=== PATIENT | male | born 1945 | race Caucasian/White ===

== ENCOUNTER → 2016-07-14 | Outpatient (CLI) | payer OTHER ==
--- NOTE | 2016-07-14 17:01 | MR ---
MRI of the Brain (Without Contrast) at 1554 hours Clinical Indications: Transient cerebral ischemic attack. G45.9. Technique: T1-weighted images were acquired axially and sagittally from the foramen magnum to the ve rtex. Axial fast inversion-recovery, fast T2-weighted, SWI, and diffusion-weighted axial images were obtained, without contrast. Comparison: None. Findings: Multiple hemosiderin deposits throughout bilateral cerebral hemispheres, but especially in the left temporal and parietal lobe regions, which may represent amyloid angiopathy. Throughout the white matter of bilateral cerebral hemispheres, there are a few scattered subcentimeter nonspecific hyperintense T2/FLAIR signal abnormalities, without hemorrhage or mass effect. The ventricles, ciste rns, and sulci are normal, without atrophy, hydrocephalus, midline shift, herniation, or epidural/sub dural hematomas. No intracranial hemorrhage or masses. Diffusion-weighted sequence demonstrates no acute infarct. Cerebellar tonsils are in normal position. Pituitary gland is normal in size. Bella l signal flow void in the superior sagittal sinus, basilar artery, and bilateral internal carotid art eries indicating patency. Paranasal sinuses and mastoid air cells are clear. Impressions 1. Possible amyloid angiopathy, with multiple hemosiderin deposits, asymmetrically more prominent in the left temporal and parietal lobes. 2. A few nonspecific hyperintense T2/FLAIR signal abnormalities in the white matter of bilateral cer ebral hemispheres. Differential diagnosis includes mild microvascular ischemic gliosis, migraine-rel ated sequela, versus less likely atypical demyelinating disease, or postinfectious/post inflammatory sequela. 3. No acute infarct, acute hemorrhage, hydrocephalus, or mass effect. 4. Consider MRA carotids and brain or CTA carotids for further evaluation. 5. Consider MRI brain, with contrast enhancement.
== END ==
LOC: FIMAGING 15:15
PROVIDERS: ATTEND Internal Medicine
DX: R94.02 Abnormal brain scan (principal)

== ENCOUNTER → 2016-08-02 | Outpatient (CLI) | payer OTHER ==
--- NOTE | 2016-08-02 14:32 | DX ---
Right second toe, 3 views History: Pain, prior trauma in November 2015. M79.674. Findings: Right second toe demonstrates subchondral sclerosis, osteophytes, and joint space narrowing of the second metatarsophalangeal joint, consistent with moderate osteoarthritis. 2-mm bone fragment along the medial base of the second toe proximal phalanx, which may represent an avulsion fracture o f indeterminate age. Mild osteoarthritis also noted in the first metatarsophalangeal joint with small spurs. Moderate oste oarthritis right great toe interphalangeal joint with subchondral sclerosis, joint space narrowing, a nd osteophytes. Impression: 1. 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 2. Tiny bone fragment adjacent to the base of the second proximal phalanx, which may represent prior fracture. 3. Mild osteoarthritis right first metatarsophalangeal joint. 4. Moderate osteoarthritis great toe interphalangeal joint.
--- NOTE | 2016-08-02 16:31 | DX ---
Left hip 2 views History: Chronic left hip pain. Comparison: None. Findings: Left hip demonstrates no evidence of fracture or dislocation. No evidence of significant degenerative changes, joint space narrowing, or osteophytes. No destructive osseous lesions. Moderate degenerative disk disease at L5-S1 with osteophytes. Multip le calcified phleboliths in the pelvis. Impression: 1. No evidence of left hip fracture or dislocation. 2. No significant degenerative changes. 3. Degenerative disk disease at L5-S1. 4. Consider additional MR imaging of the left hip if clinically indicated.
== END ==
LOC: BMCIMAGING 11:00
PROVIDERS: ATTEND Internal Medicine
DX: M25.552 Pain in left hip (principal); M19.071 Primary osteoarthritis, right ankle and foot; M51.37 Other intervertebral disc degeneration, lumbosacral region

== ENCOUNTER → 2018-06-03 | Outpatient (CLI) | payer OTHER | LOC: FIMAGING 09:12 | PROVIDERS: ATTEND Psychiatry & Neurology Neurology | DX: R41.3 Other amnesia (principal); R41.89 Other symptoms and signs involving cognitive functions and awareness; F09 Unspecified mental disorder due to known physiological condition; J32.2 Chronic ethmoidal sinusitis; Z86.69 Personal history of other diseases of the nervous system and sense organs ==

== ENCOUNTER 2018-06-20 07:54 | Observation (INO) | payer OTHER ==
--- NOTE | 2018-06-20 08:10 | EDPHY ---
HPI/HX/ROS/PE/MDM Narrative: CHIEF COMPLAINT: Swollen tongue HPI: The patient is a 73 y/o male with a history of Lisinopril use and a hernia surgery complaining of a swollen tongue onset when he woke up at 5:30, 3 hours ago. This is the fourth episode of tongue swelling in the past 3 months. Initially this morning only one side of his tongue was swelling so he tried treating it with ice and drinking water. However, the swelling progressed to involve his entire tongue. His throat then began to swell and he began to have difficulty swallowing. His noted that there was blood in his saliva, which concerned her. Since arriving in the emergency department, the swelling has mildly decreased. The patient states he has been on Lisinopril for many years and started Simvastatin 2 years ago. No rash, fever, headache, chest pain, shortness of breath, abdominal pain, urinary or bowel complaints, numbness, paresthesias. Starting in March, 3 months ago, he has had three additional episodes of tongue and throat swelling. Usually the swelling would occur on the sides of his mouth and occasionally involved his tongue. One of the episodes occurred after visiting [facility] and he followed up with his PCP who thought that the patient might be allergic to something. Typically the symptoms resolve after several hours. REVIEW OF SYSTEMS: Aside from elements discussed in the HPI, a comprehensive 10-point review of systems was reviewed and is negative. PMH: Hernia surgery (06/07/18), BPH, deviated septum SOCIAL HISTORY: Lives in [place], at bedside, retired PHYSICAL EXAM: General: Patient is alert, in no acute distress. ENT: Eyes are normal to inspection. EN inspection normal. Angioedema involving tongue and floor of his mouth. Neck: Normal inspection. Full range of motion. Respiratory: No respiratory distress. Breath sounds normal bilaterally. Cardiovascular: Regular rate and rhythm. Strong peripheral pulses. Normal cap refill. Abdomen: The abdomen is nontender to palpation. There are no peritoneal signs. There are normal bowel sounds. Back: Normal to inspection. No tenderness to palpation. Skin: Normal color. No rash. Warm and dry. Extremities: Normal appearance. Full range of motion. Neuro: Oriented x3. Normal motor function. Normal sensory function. ED Course: 927: Reassessed the patient, he believes the angioedema is getting worse after 50mg IV Benadryl and 125mg IV Solu-Medrol. As his symptoms have not improved, he will need to be admitted for further observation. He is still protecting his airway. Patient and his are comfortable with plan for admission. 0932: Patient now states that his tongue swelling has gotten much worse. Airway still patent. I consulted with the hospitalist service, Dr. Shaikh accepts admission of this patient. MDM: This patient presents with severe oral angioedema, almost assuredly secondary to lisinopril. We typically observe these patients in the ED until resolution, but patient noted worsening of tongue swelling here in the ED, which now requires further observation and workup in the hospital. - Data Points Medications Given: Discontinued Medications Diphenhydramine HCl (Benadryl Injection) 50 mg IVP EDNOW ONE Stop: 06/20/18 08:22 Last Admin: 06/20/18 08:27 Dose: 50 mg Methylprednisolone Sodium Succinate (Solu-Medrol) 125 mg IVP EDNOW ONE Stop: 06/20/18 08:22 Last Admin: 06/20/18 08:26 Dose: 125 mg General Time Seen by Provider: 06/20/18 08:09 Initial Vital Signs: Initial Vital Signs Temperature (C) 36.7 C 06/20/18 07:56 Heart Rate 96 06/20/18 07:56 Respiratory Rate 18 06/20/18 07:56 Blood Pressure 154/99 H 06/20/18 07:56 O2 Sat (%) 97 06/20/18 07:56 O2 Delivery Mode Room Air Allergies/Adverse Reactions: No Known Allergies Allergy (Verified 06/20/18 09:54) Home Medications: Medication Instructions Recorded Latanoprost 0.005% [Xalatan 0.005% 1 drops EACHEYE HS 06/20/18 (*)] Simvastatin [Zocor 10 mg] 10 mg PO DAILY18 06/20/18 Departure - Departure Disposition: [facility] Inpatient Acute Clinical Impression: Angioedema Qualifiers: Encounter type: initial encounter Qualified Code(s): T78.3XXA - Angioneurotic edema, initial encounter Condition: Good Report Scribed for: Christiano Bueno Report Scribed by: Marisa Morales Date of Report: 06/20/18 Time of Report: 08:10 Physician Review and Approval Statement: Portions of this note were transcribed by an ED scribe. I personally performed the history, physical exam, and medical decision making; and confirm the accuracy of the information in the transcribed note.
[2018-06-20] MEDS ORDERED: methylPREDNISolone SOD SUCC 125 MG/2 ML VIAL IVP ONE (08:21)
--- NOTE | 2018-06-20 10:13 | ASMTCMCOM ---
CM Note CM Note Notes: Reviewed chart. Pt presented to the Emergency Department with tongue swelling. History includes BPH, hernia repair, high cholesterol, prior tongue swelling. Pt to be admitted secondary to angioedema for further observation and treatment. Pt is and lives with his in [place]. Discharge needs remain unclear at this time. Anticipate pt will likely discharge home independently when medically stable. CM will continue to follow. Discharge Plan: Likely home indepdent, CM to follow for any potential needs Date Signed: 06/20/2018 10:12 AM Electronically Signed By:Sary Florez RN
[2018-06-20] MEDS ORDERED: ONDANSETRON DISINTEGRATING 4 MG TAB PO PRN (10:47)
[2018-06-20] MEDS ORDERED: oxyCODONE IR 5 MG TAB PO PRN (10:47)
[2018-06-20] MEDS ORDERED: diphenhydrAMINE 25 MG CAP PO PRN (10:47)
[2018-06-20] MEDS ORDERED: ONDANSETRON 4 MG/2 ML VIAL IVP PRN (10:47)
[2018-06-20] MEDS ORDERED: ACETAMINOPHEN 325 MG TAB PO PRN (10:47)
[2018-06-20] MEDS ORDERED: NS 1,000 ML IV SCH (11:00)
[2018-06-20] MEDS ORDERED: PRAVASTATIN SODIUM 20 MG TAB PO SCH (11:00)
[2018-06-20] MEDS ORDERED: RANITIDINE HCL 150 MG/10 ML UDCUP PO PRN (11:51)
--- NOTE | 2018-06-20 11:56 | PDGENHP ---
History and Physical - Chief Complaint tongue and throat swelling - History of Present Illness 73yo M with history of htn here with acute onset throat and tongue swelling. Woke up at 530am with symptoms. Was having some trouble swallowing. Spit into sink and noticed some blood. No trouble breathing. No rashes. No abdominal distention/pain/nausea/vomiting. No insect bites. No new food exposures. No pets at home. Has had similar symptoms 4 other times over last 3 months. Usually resolve in a few hours. He has taken ibuprofen at home with minimal relief. In the ED, he received IV steroids and benadryl but had persistent symptoms so is being admitted for further monitoring. History Information - Allergies/Home Medication List Allergies/Adverse Reactions: No Known Allergies Allergy (Verified 06/20/18 09:54) Home Medications: Latanoprost 0.005% [Xalatan 0.005% (*)] 1 drops EACHEYE HS 06/20/18 [Last Taken 06/19/18] Lisinopril [Zestril 5 mg (*)] 5 mg PO DAILY 06/20/18 [Last Taken 06/19/18] Simvastatin [Zocor] 10 mg PO DAILY18 06/20/18 [Last Taken 06/19/18] I have personally reviewed and updated: family history, medical history, social history, surgical history - Past Medical History Additional medical history: hypertension, BPH, episode of word finding difficulty, short term memory loss - Surgical History Additional surgical history: hernia surgery (06/07/18) with Dr Peters - Family History Positive for: non-pertinent - Social History Smoking Status: Never smoked Alcohol Use: None Drug Use: None Additional social history: Lives with Review of Systems Review of Systems: ROS: 10pt was reviewed & negative except for what was stated in HPI & below Physical Exam Physical Exam: Temp Pulse Resp BP Pulse Ox 36.9 C 83 14 128/87 H 94 06/20/18 10:32 06/20/18 10:32 06/20/18 10:32 06/20/18 10:32 06/20/18 10:32 Constitutional: no apparent distress, appears nourished, not in pain Eyes: PERRL, anicteric sclera, EOMI Ears, Nose, Mouth, Throat: other (tongue swelling, fullness in submandibular area) Cardiovascular: regular rate and rhythym, no murmur, rub, or gallop, No edema Respiratory: no respiratory distress, no rales or rhonchi, clear to auscultation , other (no stridor) Gastrointestinal: normoactive bowel sounds, soft, non-tender abdomen, no palpable masses Genitourinary: no bladder fullness, no bladder tenderness Skin: warm, normal color, no rashes or abrasions, no fluctuance, no induration, No mottled Musculoskeletal: full muscle strength, no muscle tenderness, normal joint ROM, no joint effusions Neurologic: AAOx3 Psychiatric: interacting appropriately, not anxious, not encephalopathic, thought process linear Assessment & Plan Assessment: 73yo M with history of htn here with acute onset throat and tongue swelling consistent with angioedema. Plan: 1. Acute angioedema: Likely CARLA inhibitor-induced. Protecting airway. - Stop lisinopril - s/p IV steroids and benadryl in ED, seems to be improving - will make benadryl and ranitidine available PRN if swelling recurs - short taper of prednisone starting tomorrow - send C4 level. if low, could consider checking C1 inhibitor, C1q, etc as outpatient 2. Hypertension: On very low dose lisinopril - will hold on adding additional agent for now, encouraged to keep BP log at home VTE ppx: SCDs Code: full Diet: regular Dispo: Admit under observation. Possibly discharge later this afternoon if swelling is improving.
[2018-06-20 12:00] VITALS: BP 129/88
--- NOTE | 2018-06-20 15:22 | PDDCSUM ---
Discharge Summary Discharge Summary: Date of Admission: 06/20/2018 Date of Discharge: 06/20/2018 Studies: none Discharge Diagnoses: 1. Angioedema thought 2/2 CARLA inhibitor use 2. Hypertension Brief Hospital Course: 73yo M with history of htn here with acute onset throat and tongue swelling consistent with angioedema. This is his 4th episode in 3 months but the most severe which prompted him to come in. He didn't have an initial robust response to IV steroids or benadryl in the ED so was admitted for observation. After coming to the floor, his tongue and throat swelling improved and he was discharged home. I explained to him that I think his lisinopril (which he's been on for 4 years) is the likely culprit. I stopped this medication. He was only on 5mg so I did not restart an additional anti-hypertensive at this time. I did check a C4 level that is pending. If this is low, further immunologic studies can be undertaken. Medications: Please refer to EMR. No prescriptions were given. Follow Up Plan: 1. Instructed to keep BP log and follow up with PCP, may need non-CARLA inhibitor anti-hypertensive 2. Follow up C4 level. If low, consider additional work up (C1 inhibitor function, C1q, etc) Physical Exam: Vitals reviewed and stable. Alert and oriented, tongue swelling improved, no stridor or e/o airway compromise, rrr without m/r/g, lungs clear, abdomen soft, no rashes.
[2018-06-20] MEDS ORDERED: LATANOPROST 0.005% 2.5 ML OPHT DROPS EACHEYE SCH (21:00)
[2018-06-21] MEDS ORDERED: predniSONE 20 MG TAB PO SCH (09:00)
== END 2018-06-20 16:01 | disposition home or self-care (01) ==
LOC: F3E 10:18
PROVIDERS: ADMIT Internal Medicine; ATTEND Internal Medicine
DX: T78.3XXA Angioneurotic edema, initial encounter (principal); I10 Essential (primary) hypertension; E78.5 Hyperlipidemia, unspecified; N40.0 Benign prostatic hyperplasia without lower urinary tract symptoms
CPT/HCPCS: 96374; 96375; 99285; G0378; J1200; J2930